=== PATIENT | male | born 1980 | race Caucasian/White ===

== ENCOUNTER 2019-07-31 19:10 | Emergency (ER) | payer MEDICAID, OTHER ==
[2019-07-31 19:50] VITALS: BP 149/93; PULSE 100
--- NOTE | 2019-07-31 20:14 | EDM.PDOC ---
ED HPI GENERAL MEDICAL PROBLEM - General Chief Complaint: Lower Extremity Injury/Pain Stated Complaint: PAIN IN FOOT Time Seen by Provider: 07/31/19 19:55 Source of Information: Reports: Patient History Limitations: Reports: No Limitations - History of Present Illness INITIAL COMMENTS - FREE TEXT/NARRATIVE: This 39 yo male patient reports to the ED with left foot pain. The patient reports his pain is in the bottom of his foot near the flexor tendon of the 3rd toe from the MTP joint to the heel. The patient reports he has a history of gout. The patient also has a healing wound to the medial ankle from his dog. The patient reports his current symptoms are "not gout" and are "not infection". The patient reports he has not been seen by his primary care facility due to his [facility] care provider was out of the office. Duration: Week(s):, Constant Location: Reports: Lower Extremity, Left Quality: Reports: Ache, Stabbing Severity: Severe Improves with: Reports: Rest Worsens with: Reports: Movement Context: Reports: Other Associated Symptoms: Reports: No Other Symptoms Left Feet Pain Score (Numeric/FACES): 2 - Related Data Allergies Allergy/AdvReac Type Severity Reaction Status Date / Time Penicillins AdvReac Severe Anaphylaxis Verified 07/31/19 19:50 Home Meds: Home Meds Omeprazole 20 mg PO DAILY 03/20/13 [History] Calcium Carbonate [Calcium] 09/05/15 [History] Topiramate [Topamax] 09/05/15 [History] Past Medical History - Past Health History Medical/Surgical History: Denies Medical/Surgical History Musculoskeletal History: Reports: Gout Social & Family History - Family History Family Medical History: Noncontributory - Tobacco Use Smoking Status *Q: Current Every Day Smoker Years of Tobacco use: 19 Packs/Tins Daily: 1 - Caffeine Use Caffeine Use: Reports: Soda - Recreational Drug Use Recreational Drug Use: No Review of Systems - Review of Systems Review Of Systems: Comprehensive ROS is negative, except as noted in HPI. ED EXAM, GENERAL - Physical Exam Exam: See Below Exam Limited By: No Limitations General Appearance: Alert, WD/WN, Moderate Distress Eye Exam: Bilateral Eye: EOMI, Normal Inspection, PERRL Ears: Normal External Exam, Normal Canal, Hearing Grossly Normal, Normal TMs Nose: Normal Inspection, Normal Mucosa, No Blood Throat/Mouth: Normal Inspection, Normal Lips, Normal Teeth, Normal Gums, Normal Oropharynx, Normal Voice, No Airway Compromise Head: Atraumatic, Normocephalic Neck: Normal Inspection, Supple, Non-Tender, Full Range of Motion Respiratory/Chest: No Respiratory Distress, Lungs Clear, Normal Breath Sounds, No Accessory Muscle Use, Chest Non-Tender Cardiovascular: Normal Peripheral Pulses, Regular Rate, Rhythm, No Edema, No Gallop, No JVD, No Murmur, No Rub GI/Abdominal: Normal Bowel Sounds, Soft, Non-Tender, No Organomegaly, No Distention, No Abnormal Bruit, No Mass (Male) Exam: Deferred Rectal (Males) Exam: Deferred Back Exam: Normal Inspection, Full Range of Motion, NT Extremities: Leg Pain (left foot pain. The patient has erythema of his lower extremity (more pronounced on the bottom of his foot). The patient has a small healing laceration to his right medial ankle (due to the patient's dog). The patient has inflammation of his MCP joints (patient reports previous episodes of gout). ) Neurological: Alert, Oriented, CN II-XII Intact, Normal Cognition, Normal Gait, Normal Reflexes, No Motor/Sensory Deficits Psychiatric: Normal Affect, Normal Mood Skin Exam: Warm, Dry, Intact, Normal Color, No Rash Lymphatic: No Adenopathy Course - Vital Signs Last Recorded V/S: Last Vital Signs Temp 36.3 C 07/31/19 19:43 Pulse 100 07/31/19 19:43 Resp 19 07/31/19 19:43 BP 149/93 H 07/31/19 19:43 Pulse Ox 97 07/31/19 19:43 - Orders/Labs/Meds Labs: Laboratory Tests 07/31/19 07/31/19 Range/Units 20:17 20:17 WBC 9.4 (5.0-10.0) 10^3/uL RBC 5.68 (4.6-6.2) 10^6/uL Hgb 17.9 (14.0-18.0) g/dL Hct 50.8 (40.0-54.0) % MCV 89.4 (80-100) fL MCH 31.5 (27.0-34.0) pg MCHC 35.2 H (33.0-35.0) g/dL Plt Count 189 (150-450) 10^3/uL Neut % (Auto) 70.4 (42.2-75.2) % Lymph % (Auto) 19.1 L (20.5-50.1) % Morris % (Auto) 7.9 (2-8) % Eos % (Auto) 2.1 (1.0-3.0) % Baso % (Auto) 0.5 (0.0-1.0) % Sodium 141 (136-145) mmol/L Potassium 4.0 (3.5-5.1) mmol/L Chloride 103 (98-107) mmol/L Carbon Dioxide 26 (21-32) mmol/L Anion Gap 16.0 H (7-13) mEq/L BUN 21 H (7-18) mg/dL Creatinine 0.80 (0.70-1.30) mg/dL Est Cr Clr Drug Dosing 153.71 mL/min Estimated GFR (MDRD) > 60 BUN/Creatinine Ratio 26.3 (No establ ref range) Glucose 97 (74-99) mg/dL Uric Acid 8.3 H (3.5-7.2) mg/dL Calcium 8.9 (8.5-10.1) mg/dL Total Bilirubin 0.6 (0.2-1.0) mg/dL AST 21 (15-37) U/L ALT 42 (16-63) U/L Alkaline Phosphatase 109 (46-116) U/L Total Protein 7.4 (6.4-8.2) g/dL Albumin 4.3 (3.4-5.0) g/dL Globulin 3.1 Albumin/Globulin Ratio 1.4 Meds: Medications Discontinued Medications Generic Name Dose Route Start Last Admin Trade Name Freq PRN Reason Stop Dose Admin Ketorolac Tromethamine 60 mg 07/31/19 21:13 Toradol IM 07/31/19 21:14 ONETIME ONE Departure - Departure Time of Disposition: 21:15 Disposition: Home, Self-Care 01 Condition: Fair Clinical Impression: Plantar fasciitis of left foot - Discharge Information *PRESCRIPTION DRUG MONITORING PROGRAM REVIEWED*: Not Applicable *COPY OF PRESCRIPTION DRUG MONITORING REPORT IN PATIENT EILEEN: Not Applicable Instructions: Plantar Fasciitis Forms: ED Department Discharge Care Plan Goals: The patient was advised of the examination, x-ray and lab results during the visit. The patient was given an injection of Toradol while in the ED and discharged with a script for Toradol (10 mg) #20 to take 1 by mouth every 6 hours. The patient was encouraged to always wear foot coverings with arch support. The patient should ice his foot every night before going to bed to reduce inflammation. The patient should follow-up with his primary care facility for continued evaluation and further management. If the patient has any additional symptoms or concerns, the patient should either visit his primary care facility or return to the emergency department. Sepsis Event Note (ED) - Evaluation Sepsis Screening Result: No Definite Risk - Focused Exam Vital Signs: Vital Signs Temp Pulse Resp BP Pulse Ox 07/31/19 19:43 36.3 C 100 19 149/93 H 97
--- NOTE | 2019-07-31 20:19 | CR ---
PROCEDURE INFORMATION: Exam: XR Left Foot Complete Exam date and time: 07/31/2019 8:12 PM Age: 39 years old Clinical indication: Other: Left foot pain TECHNIQUE: Imaging protocol: XR Left foot. Views: 3 or more views. COMPARISON: No relevant prior studies available. FINDINGS: Bones/joints: There is mild hallux valgus deformity. There is no evidence of acute fracture. Soft tissues: There is mild soft tissue swelling over the metatarsals. IMPRESSION: There is mild hallux valgus deformity. There is mild soft tissue swelling over the metatarsals.
[2019-07-31 20:49] LABS: CHLORIDE,CL 103 mmol/L (98-107); SODIUM,NA 141 mmol/L (136-145)
[2019-07-31] MEDS ORDERED: Ketorolac 30 MG/ML SDV IM ONE (21:13)
== END 2019-07-31 21:30 | disposition home or self-care (01) ==
LOC: DL.ED 19:10
DX: M72.2 Plantar fascial fibromatosis (principal); F17.210 Nicotine dependence, cigarettes, uncomplicated; Z88.0 Allergy status to penicillin; Z79.899 Other long term (current) drug therapy
CPT/HCPCS: 36415; 73630; 80053; 84550; 85025; 96372; 99283; J1885

== ENCOUNTER 2024-03-24 09:03 | Emergency (ER) | payer SELFPAY ==
[~2024-03-24 09:03] MED LIST: Sodium Chloride 0.9% 10 ML Syringe FLUSH PRN
[2024-03-24] MEDS: Morphine 4 MG/ML Syringe IVPUSH ONE (09:10)
[2024-03-24 09:13] LABS: BASOPHILS PERCENT AUTO 0.5 % (0.0-1.0); EOSINOPHILS PERCENT AUTO 2.2 % (1.0-3.0); HEMATOCRIT 49.8 % (40.0-54.0); HEMOGLOBIN 16.8 g/dL (14.0-18.0); LYMPHOCYTES PERCENT AUTO 21.1 % (20.5-50.1); MEAN CORPUSCULAR HEMOGLOBIN 30.7 pg (27.0-34.0); MEAN CORPUSCULAR HGB CONC 33.7 g/dL (33.0-35.0); MEAN CORPUSCULAR VOLUME 90.9 fL (80-100); MONOCYTES PERCENT AUTO 7.1 % (2-8); NEUTROPHILS PERCENT AUTO 69.1 % (42.2-75.2); PLATELET COUNT,PLT 193 10^3/uL (150-450); RED BLOOD CELL COUNT 5.48 10^6/uL (4.6-6.2)
[2024-03-24] MEDS: Heparin Sodium 5,000 Units/ML Vial IVPUSH ONE (09:14)
[2024-03-24 09:17] VITALS: BP 169/94; PULSE 86
[2024-03-24] MEDS: Nitroglycerin/D5W 25 MG/250 ML BOTTLE IV SCH (09:25)
[2024-03-24 09:35] LABS: A/G RATIO 1.1; ALANINE AMINOTRANSFERASE,ALT 30 U/L (16-63); ALBUMIN 3.9 g/dL (3.4-5.0); ALKALINE PHOSPHATASE 102 U/L (46-116); ANION GAP 13.2 mEq/L (7-13); ASPARTATE AMNIOTRANSFERASE,AST 5 U/L (15-37); BILIRUBIN TOTAL 0.4 mg/dL (0.2-1.0); BLOOD UREA NITROGEN,BUN 16 mg/dL (7-18); CALCIUM 8.7 mg/dL (8.5-10.1); CARBON DIOXIDE,CO2 28 mmol/L (21-32); CHLORIDE,CL 105 mmol/L (98-107); CREATININE 0.89 mg/dL (0.70-1.30); EST CRCL DRUG DOSING (CG) 132.75 mL/min; GLUCOSE RANDOM 159 mg/dL (70-99); POTASSIUM,K 4.2 mmol/L (3.5-5.1); PROTEIN TOTAL,TP 7.3 g/dL (6.4-8.2); SODIUM,NA 142 mmol/L (136-145)
[2024-03-24 09:36] LABS: ESTIMATED GFR 110 mL/min (>=60)
[2024-03-24 09:38] LABS: B-TYPE NATRIURETIC PEPTIDE,BNP < 5 pg/ml (0-100)
[2024-03-24 09:39] LABS: INR 0.9 (0.9-1.2); PROTHROMBIN TIME 9.7 SEC (9.0-12.0); PTT,PARTIAL THROMBOPLSTIN TIME 21.9 SEC (22.0-34.0)
[2024-03-24] MEDS: Heparin Sodium/0.45% NaCl 25,000 UNITS/500 ML BAG IV SCH (09:45)
[2024-03-24] MEDS: Ondansetron 4 MG/2 ML SDV IVPUSH ONE (09:53)
[2024-03-24] MEDS: Heparin Sodium/0.45% NaCl 500 ML ONE (09:55)
== END 2024-03-24 09:48 ==
LOC: EDBD → MERGE 09:03 → DL.ED 09:03
DX: I21.09 ST elevation (STEMI) myocardial infarction involving other coronary artery of anterior wall (principal); Z88.0 Allergy status to penicillin
CPT/HCPCS: 36415; 71045; 80053; 83880; 84484; 85025; 85610; 85730; 93005; 96365; 96375; 96376; 99285-25; J1644; J2270; J2305; J2405

== ENCOUNTER 2024-05-27 07:53 | Emergency (ER) | payer MEDICAID, OTHER ==
[2024-05-27 08:04] VITALS: BP 145/89; PULSE 97
[2024-05-27] MEDS: Ketorolac 30 MG/ML SDV IM ONE (09:22)
[2024-05-27] MEDS: Lidocaine 5% 700 MG Patch TOP ONE (09:23)
[2024-05-27] MEDS: Acetaminophen 500 MG Tab PO ONE (09:23)
== END 2024-05-27 09:30 | disposition home or self-care (01) ==
LOC: DL.ED 07:53
DX: S44.32XA Injury of axillary nerve, left arm, initial encounter (principal); I10 Essential (primary) hypertension; I25.2 Old myocardial infarction; F17.290 Nicotine dependence, other tobacco product, uncomplicated; Z88.0 Allergy status to penicillin; Z79.899 Other long term (current) drug therapy; Z79.82 Long term (current) use of aspirin; Z79.02 Long term (current) use of antithrombotics/antiplatelets; Z86.16 Personal history of COVID-19; X50.9XXA Other and unspecified overexertion or strenuous movements or postures, initial encounter
CPT/HCPCS: 73030; 96372; 99283; A9270; J1885